=== PATIENT | male | born 1950 | race Caucasian/White ===

== ENCOUNTER 2023-05-26 10:16 | Outpatient (CLI) | payer MEDICARE, BC ==
[2023-05-26] MEDS ORDERED: Magnevist 469MG/ML 20 ML VIAL ONE (12:49)
== END 2023-05-26 10:17 | disposition home or self-care (01) ==
LOC: CSHMRI 10:16
PROVIDERS: ATTEND Urology
DX: R97.20 Elevated prostate specific antigen [PSA] (principal); R93.89 Abnormal findings on diagnostic imaging of other specified body structures; N42.89 Other specified disorders of prostate
CPT/HCPCS: 72197; 82565